=== PATIENT | female | born 1985 | race Caucasian/White ===

== ENCOUNTER 2016-06-28 07:29 | Emergency (ER) | payer SELFPAY ==
[~2016-06-28] VITALS: Ht 172.7 cm; Wt 87.7 kg
[2016-06-28] MEDS ORDERED: PAXIL40 MG PO (07:52)
[2016-06-28] MEDS ORDERED: NAPROSYN500 MG PO (08:11)
[2016-06-28] MEDS ORDERED: AMOXICILLIN500 MG PO (08:11)
[2016-06-28 08:19] VITALS: BP 135/74
== END 2016-06-28 08:27 | disposition home or self-care (01) | DRG 605 ==
LOC: ED 07:29
DX: S51.812A Laceration without foreign body of left forearm, initial encounter (principal); L08.9 Local infection of the skin and subcutaneous tissue, unspecified; S50.812A Abrasion of left forearm, initial encounter; W25.XXXA Contact with sharp glass, initial encounter; Y93.E9 Activity, other interior property and clothing maintenance; Y92.009 Unspecified place in unspecified non-institutional (private) residence as the place of occurrence of the external cause